=== PATIENT | female | born 1965 | race Caucasian/White ===

== ENCOUNTER 2023-03-20 13:23 | Outpatient (CLI) | payer BC ==
--- NOTE | 2023-03-20 14:17 | Sleep Patient Instructions ---
Sleep Center Visit Summary - Patient Visit Information Reason for Visit: Initial consultation - Patient Instructions Additional Instructions: You will continue with CPAP therapy. A supply prescription will be updated with your DME once we have a copy of your sleep study. A prescription for your Lunesta was called into the pharmacy. We encourage you to continue to try to lose weight. Please follow up with the sleep care office in 1 year, as long as we have all records we need. - Clinic Information Contact: [facility] [address] [place] [email or web address] T: [phone]
--- NOTE | 2023-03-20 16:12 | SLEEP CARE CONSULTATION ---
Information from patient questionnaire entered by Génesis Dejesus. I have reviewed and concur with the information entered by Génesis Dejesus. This document represents the service I personally performed and the decisions made by , Haydee Rodriguez ARNP. History of Present Illness Service Date and Time: 03/20/2023 1323 Reason for Visit: New patient, Previously diagnosed sleep apnea, sleep apnea on CPAP therapy Accompanied by: Spouse (Nash) Chief Complaint: reports: Other (MEDS CHECK) Date of Onset: years ago Usual bedtime: 2-3AM Time it takes to fall asleep: WITH MEDS IMMEDIATELY Snores at night: No Observed to quit breathing while asleep: Yes Sleeps alone due to snoring: No Number of times waking at night: 3-5 Reasons for waking at night: reports: Other (CAT JUMPING ON ME) Toss, Turn, or Twitch while sleeping: Yes Recalls having dreams: Yes Usually gets out of bed at: NOON Feels refreshed in the morning: Yes Morning headache: No Sleepy or fatigued during the day: Yes Ever fallen asleep while driving: No Takes day naps: No Dreams during day naps: Yes Prior sleep studies: Yes ([place] 2022) Additional HPI information: ROSIE ARAYA was previously diagnosed to have Moderate, AHI 21.3, obstructive sleep apnea-hypopnea syndrome as seen on sleep study dated 01/25/2022 through [facility] in [place] and comes in today with spouse to establish care for CPAP therapy. She was diagnosed about a year ago and placed on a CPAP in [place]. She requested then to send us copies of her records. - Parasomnia Symptoms Ever been unable to move upon waking from sleep: No Walks in sleep: No Talks in sleep: No Ever acted out dreams in sleep: No Ever felt weak in the knees when startled or emotional: No Bothered by creepy, crawly, restless sensations in legs: No Problems with memory or concentration: Yes CPAP Compliance Data - Data Reviewed with Patient Average duration of nightly device use: 5.6 hours Compliance rate %: 75 (83/92 days used) Current pressure setting (cmH2O): 8-15 Average residual AHI: 0.3 Central apnea: 0 Obstructive apnea: 0.2 Average large leak: 0 L/min Compliance data discussion: She has an iBreeze CPAP. She is getting her supplies from [facility]. She is using a nasal pillows mask, Respironics Dreamwear. She is using a small cushion. Subjective Patient concerns: denies: aerophagia, mask discomfort, air blowing in eyes, mask leak noise, condensation in mask/hose, nasal congestion, dry mouth, nose, throat, epistaxis Observed to snore while using device: No Current pressure setting perceived as: comfortable On therapy, patient: reports: sleeping better, more rested overall. 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 Patient is and lives in . Have you smoked in the past 12 months: No Alcohol use: Yes Alcohol amount and frequency: 5-7WEEK Caffeine use: Yes Caffeine amount and frequency: 1 ONCE IN THE MORING DAILY Family History Family history of sleep disordered breathing: Yes Family Hx Sleep Apnea: Mother: Snoring, Sleep apnea - Untreated, Father: Snoring, Grandparent: Snoring Allergies and Home Medications Known drug allergies: No Drug allergies reviewed: Yes Home medication list reviewed: Yes (as listed) Allergy and home medication list: Home Medications Medication Instructions Recorded Confirmed Last Taken Type A-Drenal See Rx Instructions .ROUTE .COMPLEX 03/20/23 03/20/23 Unknown History Caffeine See Rx Instructions .ROUTE .COMPLEX 03/20/23 03/20/23 Unknown History Cholecalciferol (Vitamin D3) See Rx Instructions .ROUTE .COMPLEX 03/20/23 03/20/23 Unknown History [Vitamin D3] Colostrum, Bovine [Colostrum Prime See Rx Instructions .ROUTE .COMPLEX 03/20/23 03/20/23 Unknown History Life] DULoxetine [Cymbalta] See Rx Instructions .ROUTE .COMPLEX 03/20/23 03/20/23 U nknown History Dipenhydromine See Rx Instructions .ROUTE .COMPLEX 03/20/23 03/20/23 Unknown History Estradiol [Vagifem] See Rx Instructions .ROUTE .COMPLEX 03/20/23 03/20/23 Unknown History Eszopiclone [Lunesta] See Rx Instructions .ROUTE .COMPLEX 03/20/23 03/20/23 Unknown History Intergrative See Rx Instructions .ROUTE .COMPLEX 03/20/23 03/20/23 Unknown History Levothyroxine Sodium See Rx Instructions .ROUTE .COMPLEX 03/20/23 03/20/23 Unknown History Magnesium See Rx Instructions .ROUTE .COMPLEX 03/20/23 03/20/23 Unknown History My Brain See Rx Instructions .ROUTE .COMPLEX 03/20/23 03/20/23 Unknown History Naltrexone HCl See Rx Instructions .ROUTE .COMPLEX 03/20/23 03/20/23 Unknown History Wahkiacus-3 Fatty Acids [Wahkiacus-3] See Rx Instructions .ROUTE .COMPLEX 03/20/23 03/20/23 Unknown History Red Yeast Rice See Rx Instructions .ROUTE .COMPLEX 03/20/23 03/20/23 Unknown History Serenity See Rx Instructions .ROUTE .COMPLEX 03/20/23 03/20/23 Unknown History Topiramate See Rx Instructions .ROUTE .COMPLEX 03/20/23 03/20/23 Unknown History Review of Systems Weight gain over past 5 years: 15 Weight loss over past 5 years: 20 Cardiovascular: denies: high blood pressure Gastrointestinal: denies: heartburn Neurological: denies: headaches Psychiatric: reports: Attention Deficit Hyperactivity, depression, claustrophobia Ear/Nose/Throat: reports: nasal congestion, wisdom teeth removed Musculoskeletal: reports: joint pain, neck pain, back pain, muscle pain or cramping Immunologic: reports: allergies to food or environment Physical Exam Vital signs obtained and entered by: GÉNESIS Sampson MA Blood Pressure: 128/83 (LEFT ARM) Cuff size: regular Heart Rate: 81 O2 Saturation: 98 Height: 5 ft 3.25 in Weight: 196 lb Body Mass Index: 34.4 BMI Classification: Obese Neck circumference: 15 Heart: regular rate and rhythm Lungs: clear bilaterally Impression and Plan 1. Obstructive Sleep Apnea-Hypopnea Syndrome, moderate, with good treatment compliance and good apnea control. On CPAP therapy, the patient has better sleep quality and is more rested overall. Rosie comes in to establish care for her CPAP therapy and to get medication refills for her Lunesta. We have not been able to get a copy of her sleep study yet and are working on getting her data download from her DME, [facility]. Once I have this information, I will be able to send an updated supply prescription. She says she is compliant with her CPAP use and comfortable with current pressure setting. Patient's apnea severity and rationale for treatment to reduce apnea, improve sleep quality and reduce cardio vascular and cerebrovascular events was reviewed. I also reviewed the benefit of consistent device use of CPAP for depression and attention deficit. 2. Obesity, unspecified. Currently patients BMI is 34.4. Obesity increases the risk of apnea, CPAP pressure requirements and overall health risks especially cardiovascular and diabetes. Thus patient is advised to lose weight. 3. Insomnia, sleep maintenance. She has been on Lunesta 3 mg nightly for the last year. She has a client insights consultant and they cannot prescribe medications. She needs a refill. She has been tolerating the medication with good result. She says she is very claustrophobic and needs assistance to stay asleep and tolerate her mask. I will give her prescription for Lunesta. We discussed side effects and to not take medication with other sedating medications or alcohol. She voiced understanding. * Continue auto CPAP pressure at 8-15 cmH2O * Update supplies * RX: Lunesta 3 mg nightly for insomnia * Notify me if snoring with mask or feeling that the pressure is too much or too little * Attempt to lose weight * Call this office if any problems using CPAP * Return for follow up in 12 month, or sooner if concerns arise Counseling Topics: Spare mask, Weight loss health impact Prescriptions: Device supplies, Other (med refill for Lunesta) Follow up with Sleep Care in: 1 year Visit Type: In Office Time Spent with Patient (minutes): 40 Provider Statement: I spent 100% of the Face to Face Visit with the patient with greater than 50% spent counseling the patient and coordination of care.
[2023-03-20 16:24] VITALS: BP 128/83; O2SAT 98
== END 2023-03-20 13:24 | disposition home or self-care (01) ==
LOC: SC 13:23
PROVIDERS: ATTEND Nurse Practitioner Family
DX: G47.33 Obstructive sleep apnea (adult) (pediatric) (principal); G47.00 Insomnia, unspecified; E66.9 Obesity, unspecified; Z68.34 Body mass index [BMI] 34.0-34.9, adult
CPT/HCPCS: 99203; 99212

== ENCOUNTER 2023-03-20 15:27 | Outpatient (CLI) | payer BC ==
[2023-03-20 16:21] LABS: CRP HIGH SENSITIVITY 2.92 mg/L
[2023-03-21 04:10] LABS: APOLIPOPROTEIN B 102 mg/dL (<90)
[2023-03-21 07:11] LABS: PROGESTERONE 0.1 ng/mL (.)
[2023-03-24 23:08] LABS: FREE TESTOSTERONE(DIRECT) 2.1 pg/mL (0.0-4.2); TESTOSTERONE 14 ng/dL (4-50); THYROGLOBULIN ANTIBODY <1.0 IU/mL (0.0-0.9); THYROID PEROXIDASE (TPO) AB 20 IU/mL (0-34)
== END 2023-03-20 15:28 | disposition home or self-care (01) ==
LOC: LAB 15:27
PROVIDERS: ATTEND Naturopath
DX: M79.7 Fibromyalgia (principal); E03.9 Hypothyroidism, unspecified; G43.909 Migraine, unspecified, not intractable, without status migrainosus; G47.00 Insomnia, unspecified; G47.30 Sleep apnea, unspecified; E78.00 Pure hypercholesterolemia, unspecified
CPT/HCPCS: 36415; 82172; 82607; 82627; 82670; 82746; 83090; 84144; 84270; 84402; 84403; 84439; 84443; 84481; 85379; 86141; 86376; 86800

== ENCOUNTER 2023-03-21 13:44 | Emergency (ER) | payer BC ==
--- NOTE | 2023-03-21 15:25 | Ultrasound Report ---
PROCEDURE: Duplex Ext Veins Left INDICATIONS: pain TECHNIQUE: Real-time imaging, as well as color and pulse Doppler interrogation, were performed of th e lower extremity deep veins from the inguinal ligament to the popliteal fossa. Attempted visualizati on of the calf veins was performed. COMPARISON: None. FINDINGS: The deep veins are normally compressible, and free of intraluminal thrombus. Color and pu lse Doppler demonstrate normal phasic intraluminal flow. There is normal augmentation response to di stal compression maneuver. IMPRESSION: No deep venous thrombosis of the visualized lower extremity. Reviewed by: Will Ray MD on 03/21/2023 2:23 PM [facility] Approved by: Will Ray MD on 03/21/2023 2:23 PM [facility] Station ID: [id number]
--- NOTE | 2023-03-21 17:16 | ED Physician Documentation ---
PD HPI LOWER EXT INJURY - Stated complaint Stated Complaint: LT LEG PX - Chief complaint Chief Complaint: Ext Problem - Additional information Additional information: 57-year-old female presents emergency department per recommendations of her primary care provider as she had an elevated D-dimer. Patient said that she presented to her primary care provider yesterday for left knee pain and inflammation. She says that her D-dimer is chronically elevated in the 500s by her PCP ordered a D-dimer yesterday to rule out a possible DVT and is found to be greater than 900 and she called her told her to come to the emergency department. Patient says that most of her pain is behind her left knee it feels very stiff like she is having a hard time straightening it. She complains of mild swelling to the knee mild swelling to the calf with palpation. 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 - Present Medications Home Medications: Ambulatory Orders Medication Instructions Recorded Confirmed A-Drenal See Rx Instructions .ROUTE .COMPLEX 03/20/23 03/20/23 Caffeine See Rx Instructions .ROUTE .COMPLEX 03/20/23 03/20/23 Cholecalciferol (Vitamin D3) See Rx Instructions .ROUTE .COMPLEX 03/20/23 03/20/23 [Vitamin D3] Colostrum, Bovine [Colostrum Prime See Rx Instructions .ROUTE .COMPLEX 03/20/23 03/20/23 Life] DULoxetine [Cymbalta] See Rx Instructions .ROUTE .COMPLEX 03/20/23 03/20/23 Dipenhydromine See Rx Instructions .ROUTE .COMPLEX 03/20/23 03/20/23 Estradiol [Vagifem] See Rx Instructions .ROUTE .COMPLEX 03/20/23 03/20/23 Eszopiclone [Lunesta] See Rx Instructions .ROUTE .COMPLEX 03/20/23 03/20/23 Intergrative See Rx Instructions .ROUTE .COMPLEX 03/20/23 03/20/23 Levothyroxine Sodium See Rx Instructions .ROUTE .COMPLEX 03/20/23 03/20/23 Magnesium See Rx Instructions .ROUTE .COMPLEX 03/20/23 03/20/23 My Brain See Rx Instructions .ROUTE .COMPLEX 03/20/23 03/20/23 Naltrexone HCl See Rx Instructions .ROUTE .COMPLEX 03/20/23 03/20/23 Arverne-3 Fatty Acids [Arverne-3] See Rx Instructions .ROUTE .COMPLEX 03/20/23 03/20/23 Red Yeast Rice See Rx Instructions .ROUTE .COMPLEX 03/20/23 03/20/23 Serenity See Rx Instructions .ROUTE .COMPLEX 03/20/23 03/20/23 Topiramate See Rx Instructions .ROUTE .COMPLEX 03/20/23 03/20/23 - Allergies Allergies/Adverse Reactions: Allergies Allergy/AdvReac Type Severity Reaction Status Date / Time No Known Drug Allergies Allergy Verified 03/21/23 13:47 - Social History Does the pt smoke?: No Smoking Status: Never smoker Does the pt drink ETOH?: Yes ETOH Use: Wine Does the pt have substance abuse?: No - Immunizations Immunizations are current?: Yes PD ED PE NORMAL - Vitals Vital signs reviewed: Yes - General General: Alert and oriented X 3, No acute distress, Well developed/nourished - Derm Derm: Normal color, Warm and dry, No rash, Other (no erythema) - Extremities Extremities: No deformity, No calf tenderness / cord, Other - Neuro Neuro: Alert and oriented X 3 - Free text exam Free text exam: No pain with palpation to left calf. Patient has full range of motion to left knee no lateral or medial joint line tenderness. Able to flex and extend wit hout any difficulty, there is slightly more fullness to the posterior left knee in comparison to the posterior right knee. Results - Vitals Vitals: Vital Signs - 24 hr 03/21/23 03/21/23 13:47 17:50 Temperature 36.8 C 36.8 C Heart Rate 86 82 Respiratory 16 16 Rate Blood Pressure 115/77 116/80 O2 Saturation 96 98 Oxygen O2 Source Room air - Rads (name of study) Left lower extremity venous duplex Relevant Findings:: Final report received, EMP independent interpretation of test (No DVT) PD Medical Decision Making - ED course ED course: 57-year-old female was sent to the emergency department for further evaluation of possible DVT because of elevated D-dimer that was complete yesterday. D- dimer was greater than 900 but of note patient has chronically elevated D-dimer. Patient is on estrogen postmenopausally she has had no recent travel, no shortness of breath no chest pain no prolonged period of sitting or decreased mobility. Venous duplex was complete which did not reveal any DVT. There is no obvious unilateral calf swelling or pain. Patient says that most of her pain is posterior to the left knee. Unfortunately venous duplex did not capture if there is a possible Cox's cyst to the left posterior knee. There is no erythema to the left lower extremity concerning for possible cellulitis or infected joint. Patient told to follow-up with primary care provider for ongoing evaluation of her left knee pain and told to repeat possible ultrasound for possible consideration evaluation of Cox's cyst. At this time she is safe for discharge all questions answered she was given strict return precautions she adamantly denies any shortness of breath or chest pain and is aware to return if she starts developing chest pain or shortness of breath. Departure - Departure Disposition: 01 Home, Self Care Clinical Impression: Knee pain, left Qualifiers: Chronicity: acute Qualified Code(s): M25.562 - Pain in left knee Pain of lower extremity Qualifiers: Laterality: left Qualified Code(s): M79.605 - Pain in left leg Instructions: [facility] Comments: Thank you for trusting us with your care apologize for the long wait time. We have completed an ultrasound of your left lower extremity and are not able to see a DVT at this time. I would talk with your primary care provider about ordering a possible ultrasound for a Cox's cyst that is you are feeling most of your pain behind her knee. Please come back to the emergency department for started to experience any shortness of breath, chest pain, worsening leg swelling or pain, or any other concerning symptoms. Forms: PCP List Discharge Date/Time: 03/21/23 17:50
[2023-03-21 17:51] VITALS: BP 116/80; O2SAT 98
== END 2023-03-21 17:50 | disposition home or self-care (01) ==
LOC: ED 13:44
DX: M25.562 Pain in left knee (principal); M79.605 Pain in left leg; R79.1 Abnormal coagulation profile
CPT/HCPCS: 36415; 82172; 82607; 82627; 82670; 82746; 83090; 84144; 84270; 84402; 84403; 84439; 84443; 84481; 85379; 86141; 86376; 86800; 99283; 99284

== ENCOUNTER 2023-07-23 09:10 | Outpatient (CLI) | payer BC ==
[2023-07-23 11:50] LABS: BASOPHILS % (AUTO) 0.5 %; EOSINOPHILS # (AUTO) 0.2 10^3/uL (0.0-0.7); EOSINOPHILS % (AUTO) 5.6 %; HCT - HEMATOCRIT 38.2 % (37.0-47.0); HGB - HEMOGLOBIN 12.9 g/dL (12.0-16.0); LYMPHOCYTES # (AUTO) 1.4 10^3/uL (1.5-3.5); LYMPHOCYTES % (AUTO) 33.6 %; MEAN CORPUSCULAR HEMOGLOBIN 34.5 pg (27.0-31.0); MEAN CORPUSCULAR HGB CONC 33.8 g/dL (32.0-36.0); MEAN CORPUSCULAR VOLUME 102.1 fL (81.0-99.0); MEAN PLATELET VOLUME 10.5 fL (7.9-10.8); MONOCYTES # (AUTO) 0.4 10^3/uL (0.0-1.0); MONOCYTES % (AUTO) 8.7 %; NEUTROPHILS # (AUTO) 2.2 10^3/uL (1.5-6.6); NEUTROPHILS % (AUTO) 51.6 %; PLT - PLATELET COUNT 189 10^3/uL (130-450); RED BLOOD COUNT 3.74 10^6/uL (4.20-5.40); RED CELL DISTRIBUTION WIDTH 12.5 % (12.0-15.0); WHITE BLOOD COUNT 4.3 x10^3/uL (4.8-10.8)
[2023-07-23 12:22] LABS: ALBUMIN 3.8 g/dL (3.2-5.5); ALBUMIN/GLOBULIN RATIO 1.4 (1.0-2.2); BILIRUBIN,TOTAL 0.4 mg/dL (0.2-1.0); CALCIUM 9.6 mg/dL (8.5-10.3); CREATININE 0.8 mg/dL (0.6-1.3); POTASSIUM 3.9 mmol/L (3.5-4.5); TOTAL PROTEIN 6.5 g/dL (6.4-8.9)
[2023-07-23 12:52] LABS: THYROID STIMULATING HORMONE 0.79 uIU/mL (0.34-5.60)
--- NOTE | 2023-07-23 16:27 | XRAY Report ---
PROCEDURE: Chest 2V INDICATIONS: CHEST PAIN TECHNIQUE: 2 views of the chest were acquired. COMPARISON: None. FINDINGS: Surgical changes and devices: None. Lungs and pleura: No pleural effusions or pneumothorax. Posterior and lateral horizontal left lower lung scarring or atelectatic change. No dense consolidations. Mediastinum: Mediastinal contours appear normal. Heart size is normal. Bones and chest wall: No suspicious bony lesions. Overlying soft tissues appear unremarkable. IMPRESSION: No acute cardiopulmonary process. Left lower lung atelectasis or scarring. Reviewed by: Kira Torres MD on 07/23/2023 4:26 PM PDT Approved by: Kira Torres MD on 07/23/2023 4:26 PM PDT Station ID: [id number]
== END 2023-07-23 10:57 | disposition home or self-care (01) ==
LOC: DI.N 09:10
PROVIDERS: ATTEND Physician Assistant
DX: R07.9 Chest pain, unspecified (principal)
CPT/HCPCS: 36415; 80053; 84443; 85025

== ENCOUNTER 2023-08-06 14:49 | Outpatient (CLI) | payer BC ==
[2023-08-06 20:46] LABS: ESTIMATED AVERAGE GLUCOSE 80 mg/dL (70-100); HEMOGLOBIN A1c% 4.4 % (4.27-6.07)
== END 2023-08-06 14:50 | disposition home or self-care (01) ==
LOC: LAB 14:49
DX: E66.9 Obesity, unspecified (principal)
CPT/HCPCS: 36415; 83036